=== PATIENT | male | born 1975 | race Caucasian/White ===

== ENCOUNTER 2022-03-13 20:42 | Inpatient (IN) | payer OTHER ==
[2022-03-13] MEDS ORDERED: diazePAM CARPU-JECT 10 MG/2 ML DISP.SYRIN IVPUSH ONE (21:30)
[2022-03-13] MEDS ORDERED: FOLIC ACID INJECTION - 1 MG, THIAMINE HCL 100 MG, MULTIVIT INJECTION ADULT 10 ML in SOD... IVPB ONE (21:30)
[2022-03-13] MEDS ORDERED: diazePAM CARPU-JECT 10 MG/2 ML DISP.SYRIN ONE (22:12)
[2022-03-13 22:39] LABS: BASO % 1.4 % (0-2.0); EOS % 1.5 % (0-4.5); HEMATOCRIT 38.7 % (35.4-49); HEMOGLOBIN 12.9 GM/dL (11.7-16.9); LYMPH % 18.2 % (8-40); MCH 35.3 pg (25.7-33.7); MCHC 33.3 g/dl (32.0-35.9); MEAN CELL VOLUME 105.9 fl (80-96); MEAN PLT VOLUME 10.2 fl (7.5-11.1); MONO % 17.5 % (3.8-10.2); NEUT % 61.4 % (42.8-82.8); PLATELET COUNT 44 10^3/uL (134-434); RBC 3.65 M/mm3 (4.00-5.60); RDW 14.2 % (11.9-15.9); WHITE BLOOD COUNT 7.2 K/mm3 (4.0-10.0)
[2022-03-13 22:59] LABS: CALCIUM 8.6 mg/dL (8.5-10.1)
[2022-03-13 23:00] LABS: ALBUMIN 2.8 g/dl (3.4-5.0); BLOOD UREA NITROGEN 11.9 mg/dL (7-18)
[2022-03-13 23:03] LABS: CREATININE 0.9 mg/dL (0.55-1.3)
[2022-03-13 23:04] LABS: BILIRUBIN,TOTAL 3.1 mg/dL (0.2-1); TOT PROT 8.2 g/dl (6.4-8.2)
[2022-03-13 23:10] LABS: ANISOCYTOSIS 1+; MACROCYTOSIS 1+
[2022-03-14] MEDS ORDERED: LORazepam 1 MG TABLET PO PRN (01:34)
[2022-03-14] MEDS ORDERED: FOLIC ACID 1 MG TABLET (FP) PO ONE (01:35)
[2022-03-14] MEDS: SODIUM CHLORIDE 1,000 ML IV SCH ×2 (04:34→22:34)
[2022-03-14] MEDS: LORazepam 1 MG TABLET PO SCH ×4 (05:08→22:35)
[2022-03-14] MEDS ORDERED: FOLIC ACID 1 MG TABLET (FP) ONE (05:09)
[2022-03-14] MEDS ORDERED: LORazepam 1 MG TABLET ONE (05:10)
[2022-03-14] MEDS: THIAMINE HCL 100 MG TABLET (FP) PO SCH (09:20)
[2022-03-14] MEDS: PANTOPRAZOLE 40 MG TABLET PO SCH (09:20)
[2022-03-14] MEDS ORDERED: IBUPROFEN 400 MG TABLET (FP) PO PRN (09:21)
[2022-03-14] MEDS ORDERED: MAGNESIUM CITRATE 300 ML BOTTLE PO PRN (09:21)
[2022-03-14] MEDS ORDERED: METHOCARBAMOL 500 MG TABLET PO PRN (09:21)
[2022-03-14] MEDS ORDERED: LOPERAMIDE HCL 2 MG CAPSULE PO PRN (09:21)
[2022-03-14] MEDS ORDERED: IBUPROFEN 600 MG TABLET (FP) PO PRN (09:21)
[2022-03-14] MEDS ORDERED: BISMUTH SUBSALICYLATE 524 MG/30 ML PO PRN (09:21)
[2022-03-14] MEDS ORDERED: NICOTINE 10 MG CARTRIDGE (INHALER) IH PRN (09:21)
[2022-03-14] MEDS ORDERED: ONDANSETRON *ODT* 4 MG TABLET SL PRN (09:21)
[2022-03-14] MEDS ORDERED: MAGNESIUM HYDROX 2400MG/30ML ORAL SUSPENSION 30 ML CUP PO PRN (09:21)
[2022-03-14] MEDS ORDERED: BENZOCAINE/MENTHOL (CHLORASEPTIC ) LOZENGE MM PRN (09:21)
[2022-03-14] MEDS ORDERED: MAG HYDROX/AL HYDROX/SIMETH 30 ML UNIT-DOSE CUP PO PRN (09:21)
[2022-03-14] MEDS ORDERED: DICYCLOMINE HCL 10 MG CAPSULE PO PRN (09:21)
[2022-03-14] MEDS ORDERED: ENOXAPARIN NA (PORCINE) 40 MG/0.4 ML DISP.SYRIN SQ SCH (10:00)
[2022-03-14 10:56] VITALS: BMI 26.9
[2022-03-14] MEDS: hydrOXYzine PAMOATE 25 MG CAPSULE (FP) PO SCH ×4 (11:46→22:48)
[2022-03-14] MEDS: PRENATAL VITAMINS W/ FOLIC ACID TABLET (FP) PO SCH (11:46)
[2022-03-14] MEDS: CYANOCOBALAMIN (VITAMIN B-12) 100 MCG TABLET PO SCH (11:50)
[2022-03-14 11:53] LABS: BASO % 1.4 % (0-2.0); EOS % 1.7 % (0-4.5); HEMATOCRIT 36.9 % (35.4-49); LYMPH % 16.5 % (8-40); MCH 34.6 pg (25.7-33.7); MCHC 32.4 g/dl (32.0-35.9); MEAN CELL VOLUME 106.9 fl (80-96); MEAN PLT VOLUME 10.4 fl (7.5-11.1); MONO % 16.7 % (3.8-10.2); NEUT % 63.7 % (42.8-82.8); PLATELET COUNT 41 10^3/uL (134-434); RBC 3.45 M/mm3 (4.00-5.60); RDW 14.1 % (11.9-15.9); WHITE BLOOD COUNT 5.1 K/mm3 (4.0-10.0)
[2022-03-14 11:59] LABS: INR 1.86 (0.83-1.09); PROTHROMBIN TIME (PATIENT) 21.5 SEC (9.7-13.0)
[2022-03-14 12:16] LABS: ALBUMIN 2.4 g/dl (3.4-5.0); BLOOD UREA NITROGEN 8.3 mg/dL (7-18); MAGNESIUM 1.8 mg/dL (1.8-2.4)
[2022-03-14 12:19] LABS: PHOSPHOROUS 2.9 mg/dL (2.5-4.9)
[2022-03-14 12:20] LABS: CREATININE 0.5 mg/dL (0.55-1.3)
[2022-03-14 12:21] LABS: BILIRUBIN,TOTAL 2.9 mg/dL (0.2-1); TOT PROT 6.8 g/dl (6.4-8.2)
[2022-03-14 13:55] LABS: METHADONE, UR NEGATIVE (NEGATIVE); PHENCYCLIDINE,URINE NEGATIVE (NEGATIVE)
[2022-03-14 13:56] LABS: COCAINE, UR NEGATIVE (NEGATIVE); OPIATES, URI NEGATIVE (NEGATIVE); URINE BARBITURATES NEGATIVE (NEGATIVE)
[2022-03-14 13:58] LABS: URINE AMPHETAMINES NEGATIVE (NEGATIVE); URINE BENZODIAZEPINES POSITIVE (NEGATIVE)
[2022-03-14] MEDS: MELATONIN 5 MG TABLETS PO SCH (22:34)
[2022-03-15] MEDS: hydrOXYzine PAMOATE 25 MG CAPSULE (FP) PO SCH ×5 (05:55→21:17)
[2022-03-15] MEDS: SODIUM CHLORIDE 1,000 ML IV SCH (05:56)
[2022-03-15] MEDS: LORazepam 1 MG TABLET PO SCH ×4 (05:56→22:14)
[2022-03-15] MEDS: THIAMINE HCL 100 MG TABLET (FP) PO SCH (09:33)
[2022-03-15] MEDS: PANTOPRAZOLE 40 MG TABLET PO SCH (09:33)
[2022-03-15] MEDS: PRENATAL VITAMINS W/ FOLIC ACID TABLET (FP) PO SCH (09:34)
[2022-03-15] MEDS: CYANOCOBALAMIN (VITAMIN B-12) 100 MCG TABLET PO SCH (09:34)
[2022-03-15] MEDS: MELATONIN 5 MG TABLETS PO SCH (21:16)
[2022-03-16] MEDS ORDERED: LORazepam 0.5 MG TABLET PO PRN
[2022-03-16] MEDS: LORazepam 0.5 MG TABLET PO SCH ×4 (05:14→23:11)
[2022-03-16] MEDS: hydrOXYzine PAMOATE 25 MG CAPSULE (FP) PO SCH ×5 (05:14→23:12)
[2022-03-16] MEDS: PANTOPRAZOLE 40 MG TABLET PO SCH (09:47)
[2022-03-16] MEDS: THIAMINE HCL 100 MG TABLET (FP) PO SCH (09:47)
[2022-03-16] MEDS: CYANOCOBALAMIN (VITAMIN B-12) 100 MCG TABLET PO SCH (09:48)
[2022-03-16] MEDS: PRENATAL VITAMINS W/ FOLIC ACID TABLET (FP) PO SCH (09:48)
[2022-03-16 13:07] VITALS: RESP 18
[2022-03-16] MEDS: MELATONIN 5 MG TABLETS PO SCH (22:11)
[2022-03-17] MEDS ORDERED: LORazepam 0.5 MG TABLET PO ONE (05:00)
[2022-03-17] MEDS: hydrOXYzine PAMOATE 25 MG CAPSULE (FP) PO SCH ×3 (05:12→17:06)
[2022-03-17] MEDS: PANTOPRAZOLE 40 MG TABLET PO SCH (10:15)
[2022-03-17] MEDS: THIAMINE HCL 100 MG TABLET (FP) PO SCH (10:15)
[2022-03-17] MEDS: CYANOCOBALAMIN (VITAMIN B-12) 100 MCG TABLET PO SCH (10:16)
[2022-03-17] MEDS: PRENATAL VITAMINS W/ FOLIC ACID TABLET (FP) PO SCH (10:16)
[2022-03-17 10:38] LABS: BASO % 1.1 % (0-2.0); EOS % 1.7 % (0-4.5); HEMOGLOBIN 13.1 GM/dL (11.7-16.9); MCH 34.8 pg (25.7-33.7); MCHC 32.6 g/dl (32.0-35.9); MEAN CELL VOLUME 106.6 fl (80-96); MEAN PLT VOLUME 10.6 fl (7.5-11.1); MONO % 19.6 % (3.8-10.2); NEUT % 47.6 % (42.8-82.8); PLATELET COUNT 79 10^3/uL (134-434); RBC 3.75 M/mm3 (4.00-5.60); RDW 14.4 % (11.9-15.9)
[2022-03-17 10:58] LABS: ALBUMIN 2.8 g/dl (3.4-5.0); BLOOD UREA NITROGEN 12.9 mg/dL (7-18)
[2022-03-17 11:01] LABS: CREATININE 0.6 mg/dL (0.55-1.3)
[2022-03-17 11:03] LABS: BILIRUBIN,TOTAL 2.6 mg/dL (0.2-1); TOT PROT 7.7 g/dl (6.4-8.2)
[2022-03-17 11:31] VITALS: BP 139/70; PULSE 99; TEMP 98.7
== END 2022-03-17 14:27 | disposition home or self-care (01) | DRG 775 ==
LOC: JER 20:42 → JERBED 23:21 → J5S 03-14 07:43
PROVIDERS: ADMIT Internal Medicine
DX: F10.230 Alcohol dependence with withdrawal, uncomplicated (principal); R00.0 Tachycardia, unspecified; F10.220 Alcohol dependence with intoxication, uncomplicated; E88.09 Other disorders of plasma-protein metabolism, not elsewhere classified; D69.6 Thrombocytopenia, unspecified; K70.10 Alcoholic hepatitis without ascites; E80.6 Other disorders of bilirubin metabolism; D68.9 Coagulation defect, unspecified; I10 Essential (primary) hypertension; E78.5 Hyperlipidemia, unspecified; R25.1 Tremor, unspecified
CPT/HCPCS: 0241U-QW; 36415; 71046-TC-FY; 76700-TC; 80053; 80307; 82140; 83690; 83735; 84100; 85025; 85610; 86704; 86705; 86803; 87340; 87517; 93005; 93010; 99285-25